=== PATIENT | female | born 1935 | race Caucasian/White ===

== ENCOUNTER 2020-08-20 17:25 | Inpatient (IN) | payer MEDICARE, BC ==
[2020-08-20] MEDS ORDERED: HYDROmorphone 0.5 MG/0.5 ML SYRINGE IVP STA (18:20)
--- NOTE | 2020-08-20 18:20 | ED ---
General Adult HPI - General Chief complaint: Fall Stated complaint: Fall Time Seen by Provider: 08/20/20 17:30 Source: patient, EMS, RN notes reviewed, old records reviewed Mode of arrival: EMS Limitations: no limitations - History of Present Illness Initial comments: This is an 85-year-old female presents emergency Department complaining of right hip pain. Patient states she tripped over the door jam trying to help bring in some groceries and she fell onto her right hip. Patient denies hitting her head patient denies neck pain patient denies headache. Patient denies numbness weakness. Patient denies any chest pain or back pain. Patient denies any other extremity pain except for right hip pain. Right leg knee and ankle are without pain. - Related Data Home Medications Medication Instructions Recorded Confirmed Aspirin 81 mg PO DAILY 04/27/15 04/27/15 Enalapril [Vasotec] 10 mg PO DAILY 04/27/15 04/27/15 metFORMIN HCL [Glucophage] 1,000 mg PO AC-SUPPER 04/27/15 04/27/15 Previous Rx's Medication Instructions Recorded HYDROcodone/APAP 7.5-325MG [[place] 1 - 2 each PO Q6HR PRN #90 tab 04/30/15 7.5-325] Warfarin [Coumadin] 2.5 mg PO DAILY #28 tab 04/30/15 glipiZIDE [Glucotrol] 10 mg PO AC-BID tab 04/30/15 Allergies Allergy/AdvReac Type Severity Reaction Status Date / Time No Known Allergies Allergy Verified 04/27/15 21:04 Review of Systems ROS Statement: Those systems with pertinent positive or pertinent negative responses have been documented in the HPI. ROS Other: All systems not noted in ROS Statement are negative. Past Medical History Past Medical History: Cancer, Diabetes Mellitus, Hypertension Additional Past Medical History / Comment(s): Colon ca 1994 History of Any Multi-Drug Resistant Organisms: None Reported Past Surgical History: Bowel Resection Past Psychological History: No Psychological Hx Reported Past Alcohol Use History: None Reported Past Drug Use History: None Reported - Past Family History Father Family Medical History: No Reported History Mother Family Medical History: Cancer Additional Family Medical History / Comment(s): patient unsure of what type of cancer General Exam - General Exam Comments Initial Comments: GENERAL: Patient is well-developed and well-nourished. Patient is nontoxic and well- hydrated and is in mild distress. ENT: Neck is soft and supple. No significant lymphadenopathy is noted. Oropharynx is clear. Moist mucous membranes. Neck has full range of motion without eliciting any pain. EYES: The sclera were anicteric and conjunctiva were pink and moist. Extraocular movements were intact and pupils were equal round and reactive to light. Eyelids were unremarkable. PULMONARY: Unlabored respirations. Good breath sounds bilaterally. No audible rales rhonchi or wheezing was noted. CARDIOVASCULAR: There is a regular rate and rhythm without any murmurs gallops or rubs. ABDOMEN: Soft and nontender with normal bowel sounds. No palpable organomegaly was noted. There is no palpable pulsatile mass. SKIN: Skin is clear with no lesions or rashes and otherwise unremarkable. NEUROLOGIC: Patient is alert and oriented x3. Cranial nerves II through XII are grossly intact. Motor and sensory are also intact. Normal speech, volume and content. Symmetrical smile. MUSCULOSKELETAL: Patient's right hip is tender to palpation and with any movement whatsoever. LYMPHATICS: No significant lymphadenopathy is noted PSYCHIATRIC: Normal psychiatric evaluation. Limitations: no limitations Course Vital Signs 08/20/20 08/20/20 17:31 18:30 Temperature 98.4 F Pulse Rate 77 99 Respiratory 16 16 Rate Blood Pressure 203/92 164/80 O2 Sat by Pulse 98 95 Oximetry Medical Decision Making - Medical Decision Making EKG shows sinus rhythm at 90 bpm [place] interval is 128 QRSs 86 QT interval 334 QTC is 408. Patient's EKG shows some ST segment depression in inferior leads II, III, and F aVF. Patient also has slight ST segment depression in precordial leads V3 through V6. X-ray of the hip shows a femoral neck fracture. I spoke with Dr. Lundberg agreed to admit the patient admitted the patient wrote admitting orders. - Lab Data Result diagrams: 08/20/20 18:20 08/20/20 18:20 Lab Results 08/20/20 08/20/20 08/20/20 Range/Units 18:20 18:20 18:20 WBC 6.7 (3.8-10.6) k/uL RBC 4.23 (3.80-5.40) m/uL Hgb 13.5 (11.4-16.0) gm/dL Hct 38.9 (34.0-46.0) % MCV 92.0 (80.0-100.0) fL MCH 31.9 (25.0-35.0) pg MCHC 34.7 (31.0-37.0) g/dL RDW 13.5 (11.5-15.5) % Plt Count 213 (150-450) k/uL MPV 6.6 Neutrophils % 83 % Lymphocytes % 9 % Monocytes % 4 % Eosinophils % 2 % Basophils % 1 % Neutrophils # 5.6 (1.3-7.7) k/uL Lymphocytes # 0.6 L (1.0-4.8) k/uL Monocytes # 0.3 (0-1.0) k/uL Eosinophils # 0.2 (0-0.7) k/uL Basophils # 0.0 (0-0.2) k/uL PT 10.3 (9.0-12.0) sec INR 1.0 (<1.2) APTT 19.3 L (22.0-30.0) sec Sodium 133 L (137-145) mmol/L Potassium 4.5 (3.5-5.1) mmol/L Chloride 99 (98-107) mmol/L Carbon Dioxide 29 (22-30) mmol/L Anion Gap 5 mmol/L BUN 22 H (7-17) mg/dL Creatinine 0.41 L (0.52-1.04) mg/dL Est GFR (CKD-EPI)AfAm >90 (>60 ml/min/1.73 sqM) Est GFR (CKD-EPI)NonAf >90 (>60 ml/min/1.73 sqM) Glucose 290 H (74-99) mg/dL Calcium 9.2 (8.4-10.2) mg/dL Total Bilirubin 0.7 (0.2-1.3) mg/dL AST 24 (14-36) U/L ALT 19 (4-34) U/L Alkaline Phosphatase 63 (38-126) U/L Total Protein 6.6 (6.3-8.2) g/dL Albumin 4.1 (3.5-5.0) g/dL Disposition Clinical Impression: Fall, Hip fracture, left Disposition: ADMITTED IP TO THIS [facility] Referrals: None,Stated [Primary Care Provider] - 1-2 days Time of Disposition: 19:59
[2020-08-20 18:40] LABS: Basophils % (A) 1 %; Eosinophils # (A) 0.2 k/uL (0-0.7); Eosinophils % (A) 2 %; HCT 38.9 % (34.0-46.0); HGB 13.5 gm/dL (11.4-16.0); Lymphocytes # (A) 0.6 k/uL (1.0-4.8); Lymphocytes % (A) 9 %; MCH 31.9 pg (25.0-35.0); MCHC 34.7 g/dL (31.0-37.0); Mean Platelet Volume 6.6; Monocytes # (A) 0.3 k/uL (0-1.0); Monocytes % (A) 4 %; Neutrophils # (A) 5.6 k/uL (1.3-7.7); Neutrophils % (A) 83 %; Platelet Count 213 k/uL (150-450); RBC 4.23 m/uL (3.80-5.40); RDW 13.5 % (11.5-15.5); WBC 6.7 k/uL (3.8-10.6)
[2020-08-20 18:50] LABS: ALT 19 U/L (4-34); AST 24 U/L (14-36); African American GFR (CKD) >90 (>60 ml/min/1.73 sqM); Albumin 4.1 g/dL (3.5-5.0); Alkaline Phosphatase 63 U/L (38-126); Anion Gap 5 mmol/L; Blood Urea Nitrogen 22 mg/dL (7-17); Calcium 9.2 mg/dL (8.4-10.2); Carbon Dioxide 29 mmol/L (22-30); Chloride 99 mmol/L (98-107); Glucose 290 mg/dL (74-99); Non-African American GFR(CKD) >90 (>60 ml/min/1.73 sqM); Potassium 4.5 mmol/L (3.5-5.1); Sodium 133 mmol/L (137-145); Total Bilirubin 0.7 mg/dL (0.2-1.3); Total Protein 6.6 g/dL (6.3-8.2)
[2020-08-20 18:51] LABS: Prothrombin Time 10.3 sec (9.0-12.0)
[2020-08-20 18:58] LABS: Partial Thromboplastin Time 19.3 sec (22.0-30.0)
--- NOTE | 2020-08-20 19:27 | XR ---
EXAMINATION TYPE: XR Hip RT and AP Pelvis DATE OF EXAM: 08/20/2020 COMPARISON: NONE HISTORY: Pain TECHNIQUE: 3 views FINDINGS: Pelvic ring is intact. There is an acute subcapital fracture right femur with impaction. Th ere is no dislocation. IMPRESSION: Acute impacted subcapital fracture right femur.
--- NOTE | 2020-08-20 19:33 | XR ---
EXAMINATION TYPE: XR chest 1V DATE OF EXAM: 08/20/2020 COMPARISON: 04/29/2015 HISTORY: Fall. Pain. TECHNIQUE: [place] view FINDINGS: There is no heart failure nor confluent pneumonic infiltrate. Costophrenic angles are clear . Bony thorax appears intact. IMPRESSION: No active cardiopulmonary disease. No change.
[2020-08-20] MEDS ORDERED: SODIUM CHLORIDE 0.9% 1,000 ML IV ONE (20:15)
[2020-08-20] MEDS ORDERED: HYDROmorphone 0.5 MG/0.5 ML SYRINGE IVP PRN (20:18)
[2020-08-20 21:24] LABS: Glucose,Whole Blood 250 mg/dL (75-99)
[2020-08-20 21:43] LABS: Appearance,Urine Turbid (Clear); Bacteria,Urine Rare /hpf; Bilirubin,Urine Negative (Negative); Blood,Urine Negative (Negative); Color,Urine Yellow; Glucose,Urine (UA) 4+ (Negative); Ketones,Urine 1+ (Negative); Leukocyte Esterase,Urine Small (Negative); Mucus,Urine Rare /hpf; Nitrite,Urine Positive (Negative); Protein,Urine 1+ (Negative); RBC,Urine 5 /hpf (0-5); Specific Gravity,Urine 1.029 (1.001-1.035); Squamous Epithelial Cell,Urine <1 /hpf (0-4); Urobilinogen,Urine <2.0 mg/dL (<2.0); WBC,Urine 18 /hpf (0-5)
[2020-08-20] MEDS: INSULIN ASPART (NovoLOG) 100 UNIT/ML VIAL SQ SCH (21:50)
[2020-08-20] MEDS: HEPARIN SODIUM,PORCINE 5,000 UNIT/ML 1 ML VIAL SQ SCH (21:51)
--- NOTE | 2020-08-21 02:15 | P.CONS ---
History of Present Illness - Reason for Consult Consult date: 08/20/20 medical clearance Requesting physician: Yann Scott - Chief Complaint fall - History of Present Illness 85 year old female with diabetes mellitus controlled with oral hypoglycemic agents, hypertension patient comes in after sustaining a fall at home, she described it as accidental trip and fall , no loss of consciousness , no open wounds or cuts, however, she could not stand up due to severe pain in her right hip. she reports similar incident 5 years ago when she tripped with a tree root resulting in fracture of the left hip requiring surgical repair that she tolerated well. she currently denies any chest pain , trouble breathing, fever, chills, URI symptoms, abd pain , or other GI symptoms. in the ED , CXR, EKG, hipo xxray , showing acute impacted subcapital fracture right femur blood work overall unremarkable EKG no acute ST changes UA was positive for WBC and nitrite suspicious for urinary tract infection like simple cystitis Review of Systems Pertinent positives as noted in HPI. All other systems were reviewed and are negative Past Medical History Past Medical History: Cancer, Diabetes Mellitus, Hypertension Additional Past Medical History / Comment(s): Colon ca 1994 History of Any Multi-Drug Resistant Organisms: None Reported Past Surgical History: Bowel Resection Past Psychological History: No Psychological Hx Reported Past Alcohol Use History: None Reported Past Drug Use History: None Reported - Past Family History Father Family Medical History: No Reported History Mother Family Medical History: Cancer Additional Family Medical History / Comment(s): patient unsure of what type of cancer Medications and Allergies Home Medications Medication Instructions Recorded Confirmed Type Enalapril [Vasotec] 10 mg PO DAILY 04/27/15 08/20/20 History Pioglitazone HCl 45 mg PO DAILY 08/20/20 08/20/20 History glipiZIDE [Glucotrol XL] 10 mg PO DAILY 08/20/20 08/20/20 History metFORMIN HCL ER [Glucophage Xr] 500 mg PO BID 08/20/20 08/20/20 History Allergies Allergy/AdvReac Type Severity Reaction Status Date / Time No Known Allergies Allergy Verified 08/20/20 20:54 Physical Exam Vitals: Vital Signs Temp Pulse Resp BP Pulse Ox 08/20/20 18:30 99 16 164/80 95 08/20/20 17:31 98.4 F 77 16 203/92 98 Intake and Output 08/20/20 08/20/20 08/20/20 06:59 14:59 22:59 Other: Weight 47.627 kg Constitutional: No acute distress, conversant, pleasant Eyes: Anicteric sclerae, moist conjunctiva, Pupils equal round reactive to light ENMT: NC/AT Oropharynx clear, no erythema, or exudates Neck: Supple, FROM, no masses, or JVD No carotid bruits No thyromegaly Lungs: Clear to auscultation Clear to percussion Normal respiratory effort, no accessory muscle use Cardiovascular: Heart regular in rate and rhythm, No murmurs, gallops, or rubs No peripheral edema Abdominal: Soft Nontender, no guarding, rebound or rigidity Abdomen moving with respiration Normoactive bowel sounds No hepatomegaly, No splenomegaly No palpable mass No abdominal wall hernia noted Skin: Normal temperature, tone, texture, turgor No induration No subcutaneous nodules No rash, lesions No ulcers Extremities: No digital cyanosis No clubbing Pedal pulses intact and symmetrical Radial pulses intact and symmetrical No calf tenderness Psychiatric: Alert and oriented to person, place Appropriate affect fair judgement Neuro Muscles Strength 4/5 in bilateral upper extremities, and left llower extremity , however, right lower extremity limited due to pain over the hip Sensation to light touch grossly present throughout Cranial nerves II-XII grossly intact No focal sensory deficits Lymphatics: no palpable cervical or supraclavicular , or inguinal lymph nodes Results CBC & Chem 7: 08/20/20 18:20 08/20/20 18:20 Labs: Abnormal Lab Results - Last 24 Hours (Table) 08/20/20 08/20/20 08/20/20 Range/Units 18:20 18:20 18:20 Lymphocytes # 0.6 L (1.0-4.8) k/uL APTT 19.3 L (22.0-30.0) sec Sodium 133 L (137-145) mmol/L BUN 22 H (7-17) mg/dL Creatinine 0.41 L (0.52-1.04) mg/dL Glucose 290 H (74-99) mg/dL Assessment and Plan Assessment: acute impacted subcapital fracture right femur pain control DVT PPX with heparin sc tid management per orthopedics NPO after midnight simple cystitis rocephine 1gm IVPB daily follow up cultures Diabetes mellitus check A1C hold oral hypoglycemic agents, resume upon discharge insulin sliding scale Hypertension , urgency , most likely secondary to pain improving with pain control resume home meds enalapril monitor vital signs PT eval post surgery follow up CBC and renal function full code patient is 85 year old Female, presetned with acute pain right hip after sustaining accidental fall . Patient denies any recent history or symptoms of congestive heart failure, mycardial infarction, syncope, arrhythmia, palpitation, or exertional dyspnea. Patient denies any past medical history of stroke, CAD, CHF, or CKD. patient does have history of DM and hypertension controlled with oral meds. Patient is functional at baseline at >4 METs she is able to climb one flight of stairs with no limitations, she is able to perform house chores and reports that she is always active and running around. Patient labs reviewed, EKG showing normal sinus rhythm , no acute ST changes. Patient is scheduled for orthopedic surgery to fix right hip fracture. This is of moderate risk, besides her advanced age and history of DM however, no modifiable risk factors at this time. Patient can proceed to surgery with moderate but acceptable perioperative cardiovascular risk factors. This has been explained to the patient and her family member at bedside , all questions answered, patient verbalized understanding and agreement. Thank you for allowing us to participate in the care of this patient. Do not hesitate to contact us with questions. Someone can be reached from the [facility] hospitalist group at all hours of the day at [phone].
[2020-08-21] MEDS: HEPARIN SODIUM,PORCINE 5,000 UNIT/ML 1 ML VIAL SQ SCH ×3 (04:39→21:20)
[2020-08-21 06:52] LABS: Glucose,Whole Blood 242 mg/dL (75-99)
[2020-08-21] MEDS: INSULIN ASPART (NovoLOG) 100 UNIT/ML VIAL SQ SCH ×4 (07:42→21:20)
[2020-08-21] MEDS: lisinopriL 10 MG TAB PO SCH (07:55)
--- NOTE | 2020-08-21 08:08 | P.HPOR ---
History of Present Illness H&P Date: 08/21/20 Chief Complaint: Right hip pain This is an 85-year-old female admitted through the emergency department last evening after sustaining injury to her right hip from a ground level fall. She was found to have a femoral neck fracture of the right hip and admitted to our service for surgical intervention. The patient has history of hypertension and diabetes. Past Medical History Past Medical History: Cancer, Diabetes Mellitus, Hypertension Additional Past Medical History / Comment(s): Colon ca 1993 History of Any Multi-Drug Resistant Organisms: None Reported Past Surgical History: Bowel Resection Past Anesthesia/Blood Transfusion Reactions: No Reported Reaction Past Psychological History: No Psychological Hx Reported Past Alcohol Use History: None Reported Past Drug Use History: None Reported - Past Family History Father Family Medical History: No Reported History Mother Family Medical History: Cancer Additional Family Medical History / Comment(s): patient unsure of what type of cancer Medications and Allergies Home Medications Medication Instructions Recorded Confirmed Type Enalapril [Vasotec] 10 mg PO DAILY 04/27/15 08/20/20 History Pioglitazone HCl 45 mg PO DAILY 08/20/20 08/20/20 History glipiZIDE [Glucotrol XL] 10 mg PO DAILY 08/20/20 08/20/20 History metFORMIN HCL ER [Glucophage Xr] 500 mg PO BID 08/20/20 08/20/20 History Allergies Allergy/AdvReac Type Severity Reaction Status Date / Time No Known Allergies Allergy Verified 08/20/20 20:54 Physical Examination This is a pleasant 85-year-old female in no acute distress. She is alert with slight confusion this morning. She is having difficulty recalling the details of her fall. Exam of the head neck reveal no obvious deformity. She has full cervical spine motion without difficulty or pain. Exam of the upper extremities is unremarkable. She has full shoulder, elbow, wrist and finger motion bilaterally. Neurovascular status to the upper ex tremities is intact. Exam of the lower extremities reveals shortening and external rotation to the r ight leg. She is able lift the left leg off the bed independently. She is unable to move the right leg. There is some discoloration to bilateral feet with the right being more severe. Capillary refill is sluggish at about 5 seconds bilaterally. Slightly dulled sensation to bilateral feet. Results X-rays of the pelvis and right hip reveal a displaced femoral neck fracture of the right hip. There are hemiarthroplasty components in place on the left hip. - Labs Labs: Abnormal Lab Results - Last 24 Hours (Table) 08/20/20 08/20/20 08/20/20 Range/Units 18:20 18:20 18:20 Lymphocytes # 0.6 L (1.0-4.8) k/uL APTT 19.3 L (22.0-30.0) sec Sodium 133 L (137-145) mmol/L BUN 22 H (7-17) mg/dL Creatinine 0.41 L (0.52-1.04) mg/dL Glucose 290 H (74-99) mg/dL POC Glucose (mg/dL) (75-99) mg/dL Urine Appearance (Clear) Urine Protein (Negative) Urine Glucose (UA) (Negative) Urine Ketones (Negative) Urine Nitrite (Negative) Ur Leukocyte Esterase (Negative) Urine WBC (0-5) /hpf Urine Bacteria (None) /hpf Urine Mucus (None) /hpf 08/20/20 08/20/20 08/21/20 Range/Units 21: 21:38 06:47 Lymphocytes # (1.0-4.8) k/uL APTT (22.0-30.0) sec Sodium (137-145) mmol/L BUN (7-17) mg/dL Creatinine (0.52-1.04) mg/dL Glucose (74-99) mg/dL POC Glucose (mg/dL) 250 H 242 H (75-99) mg/dL Urine Appearance Turbid H (Clear) Urine Protein 1+ H (Negative) Urine Glucose (UA) 4+ H (Negative) Urine Ketones 1+ H (Negative) Urine Nitrite Positive H (Negative) Ur Leukocyte Esterase Small H (Negative) Urine WBC 18 H (0-5) /hpf Urine Bacteria Rare H (None) /hpf Urine Mucus Rare H (None) /hpf H & H 08/20/20 Range/Units 18:20 Hgb 13.5 (11.4-16.0) gm/dL Hct 38.9 (34.0-46.0) % Coagulation 08/20/20 Range/Units 18:20 INR 1.0 (<1.2) Result Diagrams: 08/20/20 18:20 08/20/20 18:20 Assessment and Plan (1) Fracture of femoral neck, right Current Visit: Yes Status: Acute Code(s): S72.001A - FRACTURE OF UNSP PART OF NECK OF RIGHT FEMUR, INIT SNOMED Code(s): 8143471 (2) Fall Current Visit: Yes Status: Acute Code(s): W19.XXXA - UNSPECIFIED FALL, INITIAL ENCOUNTER SNOMED Code(s): 4844032 (3) Diabetes Current Visit: No Status: Acute Code(s): E11.9 - TYPE 2 DIABETES MELLITUS WITHOUT COMPLICATIONS SNOMED Code(s): 40005989 Plan: The clinical and neck she findings are discussed with the patient and nursing staff. It is recommended she undergo hemiarthroplasty of the right hip today. The patient is cleared medically with moderate cardiovascular risk.
[2020-08-21] MEDS ORDERED: ACETAMINOPHEN TAB 325 MG TAB PO PRN (08:15)
--- NOTE | 2020-08-21 10:02 | P.PN ---
Subjective Progress Note Date: 08/21/20 Patient feels okay no chest pain no shortness of breath Constitutional: No acute distress, conversant, pleasant Eyes: Anicteric sclerae, moist conjunctiva, no lid-lag PERRLA ENMT: NC/AT Oropharynx clear, no erythema, exudates Neck: Supple, FROM, no masses, or JVD No carotid bruits No thyromegaly Lungs: Clear to auscultation Clear to percussion Normal respiratory effort, no accessory muscle use Cardiovascular: Heart regular in rate and rhythm, No murmurs, gallops, or rubs No peripheral edema Abdominal: Soft Nontender, no guarding, rebound or rigidity Abdomen moving with respiration Normoactive bowel sounds No hepatomegaly, No splenomegaly No palpable mass No abdominal wall hernia noted Skin: Normal temperature, tone, texture, turgor No induration No subcutaneous nodules No rash, lesions No ulcers Extremities: Cyanosis in the right foot Psychiatric:Alert and oriented to person, place and time Appropriate affect Intact judgement Discoloration of the right foot with cyanosis no evidence of acute ischemia may need vascular consult acute impacted subcapital fracture right femur pain control DVT PPX with heparin sc tid management per orthopedics NPO after midnight simple cystitis rocephine 1gm IVPB daily follow up cultures Diabetes mellitus check A1C hold oral hypoglycemic agents, resume upon discharge insulin sliding scale Hypertension , urgency , most likely secondary to pain improving with pain control resume home meds enalapril monitor vital signs PT eval post surgery follow up CBC and renal function full code Objective - Vital Signs Vital signs: Vital Signs Temp 100.2 F H 08/21/20 07:06 Pulse 81 08/21/20 07:06 Resp 18 08/21/20 07:06 BP 158/75 08/21/20 07:06 Pulse Ox 96 08/21/20 07:06 Intake & Output 08/20/20 08/21/20 08/21/20 18:59 06:59 18:59 Weight 47.627 kg 47.627 kg Other: Voiding Method Bedpan Diaper # Voids 3 - Labs CBC & Chem 7: 08/20/20 18:20 08/20/20 18:20 Labs: Abnormal Lab Results - Last 24 Hours (Table) 08/20/20 08/20/20 08/20/20 Range/Units 18:20 18:20 18:20 Lymphocytes # 0.6 L (1.0-4.8) k/uL APTT 19.3 L (22.0-30.0) sec Sodium 133 L (137-145) mmol/L BUN 22 H (7-17) mg/dL Creatinine 0.41 L (0.52-1.04) mg/dL Glucose 290 H (74-99) mg/dL POC Glucose (mg/dL) (75-99) mg/dL Urine Appearance (Clear) Urine Protein (Negative) Urine Glucose (UA) (Negative) Urine Ketones (Negative) Urine Nitrite (Negative) Ur Leukocyte Esterase (Negative) Urine WBC (0-5) /hpf Urine Bacteria (None) /hpf Urine Mucus (None) /hpf 08/20/20 08/20/20 08/21/20 Range/Units 21:22 21:38 06:47 Lymphocytes # (1.0-4.8) k/uL APTT (22.0-30.0) sec Sodium (137-145) mmol/L BUN (7-17) mg/dL Creatinine (0.52-1.04) mg/dL Glucose (74-99) mg/dL POC Glucose (mg/dL) 250 H 242 H (75-99) mg/dL Urine Appearance Turbid H (Clear) Urine Protein 1+ H (Negative) Urine Glucose (UA) 4+ H (Negative) Urine Ketones 1+ H (Negative) Urine Nitrite Positive H (Negative) Ur Leukocyte Esterase Small H (Negative) Urine WBC 18 H (0-5) /hpf Urine Bacteria Rare H (None) /hpf Urine Mucus Rare H (None) /hpf
[2020-08-21 10:36] LABS: African American GFR (CKD) 95.7 (60.0-200.0); Anion Gap 14.1 mmol/L (4.00-12.00); Calcium 8.8 mg/dL (8.7-10.3); Carbon Dioxide 24.9 mmol/L (21.6-31.8); Non-African American GFR(CKD) 82.5 (60.0-200.0); Potassium 4.4 mmol/L (3.5-5.5)
[2020-08-21 12:06] LABS: Glucose,Whole Blood 194 mg/dL (75-99)
[2020-08-21] MEDS ORDERED: IV FLUID CONTINUATION 1,000 ML IV ONE (14:25)
[2020-08-21] MEDS ORDERED: ONDANSETRON 4 MG/2 ML VIAL ONE (14:35)
[2020-08-21] MEDS ORDERED: PHENYLEPHRINE 10 MG/ML VIAL ONE (14:35)
[2020-08-21] MEDS ORDERED: ePHEDrine SULFATE/0.9% NACL/PF 50 MG/5 ML SYRINGE IV ONE (14:35)
[2020-08-21] MEDS ORDERED: KETAMINE 10 MG/ML 20 ML VIAL ONE (14:35)
[2020-08-21] MEDS ORDERED: fentaNYL (PF) 50 MCG/ML 2 ML AMP ONE (14:35)
[2020-08-21] MEDS ORDERED: WATER FOR INJECTION, STERILE 10 ML VIAL IV ONE (14:35)
[2020-08-21 14:48] VITALS: BMI 17.4
[2020-08-21] MEDS ORDERED: ceFAZolin 1,000 MG VIAL IVPB ONE (15:00)
[2020-08-21] MEDS ORDERED: LACTATED RINGERS 1,000 ML IV ONE (15:44)
--- NOTE | 2020-08-21 15:47 | P.OP ---
Date of Procedure: 08/21/20 Procedure(s) Performed: PREOPERATIVE DIAGNOSIS: Right hip femoral neck fracture POSTOPERATIVE DIAGNOSIS: Right hip femoral neck fracture OPERATION: Right hip cemented unipolar hemiarthroplasty. ANESTHESIA: Spinal ESTIMATED BLOOD LOSS: 75 ml. MORTICIAN HELPER: Clemencia Balbuena PA-C (assistance with: patient positioning, retraction, exposure, hemostasis, leg positioning, implantation, irrigation, closure, dressing) COMPLICATIONS: None apparent. COMPONENTS IMPLANTED: Marycarmen LDFx cemented femoral stem; unipolar femoral head; neck extension augments as needed (+10.5 mm). INDICATIONS: Mrs. Rose is an 85-year-old female with a history of falling and sustaining a displaced femoral neck fracture. I have recommended surgical treatment with a cemented unipolar hemiarthroplasty. I have discussed this procedure in detail and explained the potential risks and complications as being inclusive of, but not limited to: Bleeding, infection, scarring, discomfort, blood vessel and/or nerve damage, limb length inequality, gait disturbance, blood clot, pulmonary embolism, , and other risks. The consent form has been signed. PROCEDURE: After appropriate consent was obtained, the patient was taken to the operating room and placed in supine position. Spinal anesthetic was administered and after confirmation of adequate anesthesia, the patient was placed into the lateral decubitus position with the affected side up. Care was taken to make sure that all pressure points were adequately padded and a Mg hip positioner was utilized for positioning. The hip was prepped and draped in the usual aseptic fashion using a combination of Chloraprep and alcohol. [place] drape was used for the case and the patient received intravenous antibiotics prior to the incision. The incision was created directly over the greater trochanter and carried slightly posteriorly for a posterior approach to the hip. The incision was then deepened down to subcutaneous tissue and fascia nereyda. Fascia nereyda was split in line with the incision and split proximally along the fibers of the gluteus lluvia. The underlying fibers of the muscle were teased apart using finger dissection and bleeding vessels were picked up and coagulated. Retractor was then placed posteriorly consisting of a blunt [place]. The short external rotators and capsule were exposed and good visualization of the attachment of the external rotators to the femur was established. The short external rotators and capsule were released using electrocautery from their femoral attachments. A hockey stick shaped incision was created in the capsule. Joint fluid and hemarthrosis was evacuated and the patient's hip was internally rotated to expose the fracture site. The femoral neck cut was created approximately 1 cm superior to the lesser trochanter using a reciprocating saw. The femoral head and neck fragment was removed and visualization and palpation of the acetabular vault showed intact hyaline cartilage with no bone exposure or significant degeneration. Attention was then directed back to the proximal femur. Retractors were placed around the proximal femur and box osteotome was used followed by canal finder and trochanteric reamer. Cylindrical reaming was performed. Progressive broaching was then performed starting with a #10 broach and progressing final size, in a position of 10-15 degrees anteversion. [place] anteversion was within 5 degrees of stem position. The final size broach had excellent fit and fill of the patient's metaphysis and diaphysis. Calcar planing was performed. Trial reduction was then performed starting with appropriately sized femoral head and various neck extensions to evaluate stability, limb length equality, and soft tissue tension. Once these parameters were satisfactory, the corresponding final components were then called for. Trial components were removed. The femoral canal was sized for the centralizer and cement plug. Once the cement plug had been inserted distal to the planned length of the femoral component, the canal was pulse lavaged and brushed to remove any unstable bone. It was then dried with a lap sponge. Cement was mixed under vacuum conditions to decrease porosity and inserted into a cement gun. Distal centralizer was placed onto the femoral component with a bit of cement. The cement was allowed to reach a slightly doughy consistency and then the canal was filled retrograde with the cement gun. Thumb pressurization was performed three times. The femoral component was then inserted with the previously determined degree of anteversion. Excess cement was removed before it hardened completely. The femoral head was then impacted onto the Lau taper. Blood and debris were removed from the acetabular socket and the hip was then reduced and checked for stability, limb length and soft tissue tension. These parameters were found to be satisfactory; the wound was then thoroughly irrigated with normal saline. Final hemostasis was obtained using electrocautery. Closure of the capsule was performed meticulously using #3 Vicryl suture. Four [id number] sutures were placed in the posterior capsule along with repair of the external rotators. The fascia nereyda was then repaired using combination of #3 Vicryl suture in interrupted fashion and Quill in running fashion. 2-0 Vicryl suture was used for the subcutaneous tissues and 3-0 Quill for the skin. Dermabond tape was then applied. The patient tolerated the procedure well. There were no complications and the wound bed was dry and there was no need for drain placement. Sterile dressing was then applied and the patient was carefully removed from the operating room table, placed on the stretcher and was taken to the recovery room in stable condition. Sponge and needle counts were correct.
[2020-08-21 15:58] LABS: Hemoglobin A1C 9.9 % (4.0-6.0)
[2020-08-21] MEDS ORDERED: NALOXONE 0.4 MG/ML 1 ML VIAL IV PRN (16:09)
[2020-08-21] MEDS ORDERED: HYDROmorphone 0.2 MG/1 ML SYRINGE IVP PRN (16:09)
[2020-08-21] MEDS ORDERED: HYDROmorphone 0.5 MG/0.5 ML SYRINGE IVP PRN (16:09)
[2020-08-21] MEDS ORDERED: TEMAZEPAM 15 MG CAP PO PRN (16:09)
--- NOTE | 2020-08-21 16:23 | XR ---
EXAMINATION TYPE: XR Hip Limited RT DATE OF EXAM: 08/21/2020 CLINICAL HISTORY: Right hip fracture. TECHNIQUE: Single AP portable view of right hip is obtained immediately postoperatively. COMPARISON: Pelvic and right hip x-ray from yesterday. FINDINGS: Metallic hardware from total right hip arthroplasty is seen and appears satisfactory in ali gnment and position. There is evidence of recent surgery with subcutaneous gas noted laterally. IMPRESSION: Metallic hardware from right hip arthroplasty is satisfactory in position.
--- NOTE | 2020-08-21 16:53 | P.GSCN ---
History of Present Illness Consult date: 08/21/20 History of present illness: Mrs. Rose is an 85-year-old female who fell. She was uncertain of how she fell but did sustain a displaced femoral neck fracture of her right lower extremity. The plan was to undergo surgical repair but upon evaluation this morning, there was concern of some delayed capillary refill of her right lower extremity therefore vascular surgery was consulted. At the time of the phone to consult, a stat arterial Doppler with ABIs was obtai anibal revealing multiphasic flow on the left with an FEMI of 1.5, and multiphasic flow through the PT with more monophasic flow through the dorsalis pedis on the right with an FEMI of 1.21 given these findings I do not believe there is any significant arterial occlusion acutely and orthopedics proceed with surgical intervention. My consultation and physical exam was performed after surgery in the postanesthesia care unit Past Medical History Past Medical History: Cancer, Diabetes Mellitus, Hypertension Additional Past Medical History / Comment(s): Colon ca 1993 History of Any Multi-Drug Resistant Organisms: None Reported Past Surgical History: Bowel Resection Past Anesthesia/Blood Transfusion Reactions: No Reported Reaction Past Psychological History: No Psychological Hx Reported Past Alcohol Use History: None Reported Past Drug Use History: None Reported - Past Family History Father Family Medical History: No Reported History Mother Family Medical History: Cancer Additional Family Medical History / Comment(s): patient unsure of what type of cancer Medications and Allergies Home Medications Medication Instructions Recorded Confirmed Type Enalapril [Vasotec] 10 mg PO DAILY 04/27/15 08/20/20 History Pioglitazone HCl 45 mg PO DAILY 08/20/20 08/20/20 History glipiZIDE [Glucotrol XL] 10 mg PO DAILY 08/20/20 08/20/20 History metFORMIN HCL ER [Glucophage Xr] 500 mg PO BID 08/20/20 08/20/20 History Allergies Allergy/AdvReac Type Severity Reaction Status Date / Time No Known Allergies Allergy Verified 08/20/20 20:54 Surgical - Exam Vital Signs Temp Pulse Resp BP Pulse Ox 98.4 F 77 16 203/92 98 08/20/20 17:31 08/20/20 17:31 08/20/20 17:31 08/20/20 17:31 08/20/20 17:31 Gen. is a pleasant and cooperative elderly female in no acute distress. HEENT is normocephalic atraumatic. Extraocular motion intact. Heart is irregular, appears to be multiple PACs. Lungs are clear although decreased breath sounds. Abdomen is soft, nontender nondistended. Extremity show no clubbing or edema. There is some purplish hue to the right lower extremity although there appears to be adequate capillary refill through this. She has a palpable DP and PT on the left. She has a palpable PT on the right. She has multiphasic signal through the DP which is much lateral, it diminishes at the midfoot. Patient remains motor sensory intact but difficult to fully examine due to previously placed spinal. She is able to move her feet and wiggle her toes. Normal mood and affect. Cranial nerves II through XII grossly intact Results Arterial Dopplers reviewed and per the HPI - Labs 08/20/20 18:20 08/21/20 06:32 Abnormal Lab Results - Last 24 Hours (Table) 08/20/20 08/20/20 08/20/20 Range/Units 18:20 18:20 18:20 Lymphocytes # 0.6 L (1.0-4.8) k/uL APTT 19.3 L (22.0-30.0) sec Sodium 133 L (137-145) mmol/L Anion Gap (4.00-12.00) mmol/L BUN 22 H (7-17) mg/dL Creatinine 0.41 L (0.52-1.04) mg/dL BUN/Creatinine Ratio (12.00-20.00) Ratio Glucose 290 H (74-99) mg/dL POC Glucose (mg/dL) (75-99) mg/dL Hemoglobin A1c (4.0-6.0) % Urine Appearance (Clear) Urine Protein (Negative) Urine Glucose (UA) (Negative) Urine Ketones (Negative) Urine Nitrite (Negative) Ur Leukocyte Esterase (Negative) Urine WBC (0-5) /hpf Urine Bacteria (None) /hpf Urine Mucus (None) /hpf 08/20/20 08/20/20 08/21/20 Range/Units 21:22 21:38 06:32 Lymphocytes # (1.0-4.8) k/uL APTT (22.0-30.0) sec Sodium (137-145) mmol/L Anion Gap (4.00-12.00) mmol/L BUN (7-17) mg/dL Creatinine (0.52-1.04) mg/dL BUN/Creatinine Ratio (12.00-20.00) Ratio Glucose (74-99) mg/dL POC Glucose (mg/dL) 250 H (75-99) mg/dL Hemoglobin A1c 9.9 H (4.0-6.0) % Urine Appearance Turbid H (Clear) Urine Protein 1+ H (Negative) Urine Glucose (UA) 4+ H (Negative) Urine Ketones 1+ H (Negative) Urine Nitrite Positive H (Negative) Ur Leukocyte Esterase Small H (Negative) Urine WBC 18 H (0-5) /hpf Urine Bacteria Rare H (None) /hpf Urine Mucus Rare H (None) /hpf 08/21/20 08/21/20 08/21/20 Range/Units 06:32 06:47 12:04 Lymphocytes # (1.0-4.8) k/uL APTT (22.0-30.0) sec Sodium (137-145) mmol/L Anion Gap 14.10 H (4.00-12.00) mmol/L BUN (7-17) mg/dL Creatinine (0.52-1.04) mg/dL BUN/Creatinine Ratio 30.00 H (12.00-20.00) Ratio Glucose 262 H (74-99) mg/dL POC Glucose (mg/dL) 242 H 194 H (75-99) mg/dL Hemoglobin A1c (4.0-6.0) % Urine Appearance (Clear) Urine Protein (Negative) Urine Glucose (UA) (Negative) Urine Ketones (Negative) Urine Nitrite (Negative) Ur Leukocyte Esterase (Negative) Urine WBC (0-5) /hpf Urine Bacteria (None) /hpf Urine Mucus (None) /hpf Diabetes panel 08/20/20 08/21/20 08/21/20 Range/Units 18:20 06:32 06:32 Sodium 133 L 138 (137-145) mmol/L Potassium 4.5 4.4 (3.5-5.1) mmol/L Chloride 99 99 (98-107) mmol/L Carbon Dioxide 29 24.9 (22-30) mmol/L BUN 22 H 18.0 (7-17) mg/dL Creatinine 0.41 L 0.6 (0.52-1.04) mg/dL Glucose 290 H 262 H (74-99) mg/dL Hemoglobin A1c 9.9 H (4.0-6.0) % Calcium 9.2 8.8 (8.4-10.2) mg/dL AST 24 (14-36) U/L ALT 19 (4-34) U/L Alkaline Phosphatase 63 (38-126) U/L Total Protein 6.6 (6.3-8.2) g/dL Albumin 4.1 (3.5-5.0) g/dL Calcium panel 08/20/20 08/21/20 Range/Units 18:20 06:32 Calcium 9.2 8.8 (8.4-10.2) mg/dL Albumin 4.1 (3.5-5.0) g/dL Pituitary panel 08/20/20 08/21/20 Range/Units 18:20 06:32 Sodium 133 L 138 (137-145) mmol/L Potassium 4.5 4.4 (3.5-5.1) mmol/L Chloride 99 99 (98-107) mmol/L Carbon Dioxide 29 24.9 (22-30) mmol/L BUN 22 H 18.0 (7-17) mg/dL Creatinine 0.41 L 0.6 (0.52-1.04) mg/dL Glucose 290 H 262 H (74-99) mg/dL Calcium 9.2 8.8 (8.4-10.2) mg/dL Adrenal panel 08/20/20 08/21/20 Range/Units 18:20 06:32 Sodium 133 L 138 (137-145) mmol/L Potassium 4.5 4.4 (3.5-5.1) mmol/L Chloride 99 99 (98-107) mmol/L Carbon Dioxide 29 24.9 (22-30) mmol/L BUN 22 H 18.0 (7-17) mg/dL Creatinine 0.41 L 0.6 (0.52-1.04) mg/dL Glucose 290 H 262 H (74-99) mg/dL Calcium 9.2 8.8 (8.4-10.2) mg/dL Total Bilirubin 0.7 (0.2-1.3) mg/dL AST 24 (14-36) U/L ALT 19 (4-34) U/L Alkaline Phosphatase 63 (38-126) U/L Total Protein 6.6 (6.3-8.2) g/dL Albumin 4.1 (3.5-5.0) g/dL Assessment and Plan Assessment: Color changes right lower extremity Femoral neck fracture right femur Irregular heartbeat, question PACs Plan: Overall do not believe the patient has any significant arterial injury or insufficiency at this time given the review of her waveforms and clinical findings. We'll continue to monitor. Keep right lower extremity warm. Repeat EKG
[2020-08-21] MEDS: LACTATED RINGERS 1,000 ML IV SCH (17:32)
[2020-08-21] MEDS: HYDROmorphone 0.5 MG/0.5 ML SYRINGE IVP PRN (19:46)
[2020-08-21] MEDS: SENNOSIDES-DOCUSATE SODIUM 1 EACH TAB PO SCH (21:20)
[2020-08-21] MEDS: ASPIRIN 81 MG PO SCH (21:20)
[2020-08-21 21:31] LABS: Glucose,Whole Blood 309 mg/dL (75-99)
[2020-08-22] MEDS: LACTATED RINGERS 1,000 ML IV SCH ×3 (02:03→22:41)
[2020-08-22] MEDS: HYDROmorphone 0.5 MG/0.5 ML SYRINGE IVP PRN ×2 (03:21→06:07)
[2020-08-22] MEDS: HEPARIN SODIUM,PORCINE 5,000 UNIT/ML 1 ML VIAL SQ SCH ×3 (06:07→19:41)
[2020-08-22 06:44] LABS: Glucose,Whole Blood 302 mg/dL (75-99)
[2020-08-22 07:56] LABS: Basophils % (A) 0 %; Eosinophils % (A) 0 %; HCT 37.9 % (34.0-46.0); HGB 12.2 gm/dL (11.4-16.0); Hypochromasia Moderate; Lymphocytes # (A) 0.6 k/uL (1.0-4.8); Lymphocytes % (A) 5 %; MCH 31.7 pg (25.0-35.0); MCHC 32.2 g/dL (31.0-37.0); Monocytes # (A) 0.6 k/uL (0-1.0); Monocytes % (A) 5 %; Neutrophils # (A) 10.5 k/uL (1.3-7.7); Neutrophils % (A) 89 %; Platelet Count 234 k/uL (150-450); RBC 3.85 m/uL (3.80-5.40); RDW 13.8 % (11.5-15.5); WBC 11.8 k/uL (3.8-10.6)
[2020-08-22 08:09] LABS: MCV 98.6 fL (80.0-100.0)
[2020-08-22] MEDS: INSULIN ASPART (NovoLOG) 100 UNIT/ML VIAL SQ SCH ×4 (08:10→21:41)
[2020-08-22] MEDS: lisinopriL 10 MG TAB PO SCH (08:11)
[2020-08-22] MEDS: ASPIRIN 81 MG PO SCH ×2 (08:11→19:40)
--- NOTE | 2020-08-22 08:52 | P.PN ---
Subjective Progress Note Date: 08/22/20 Patient seen and examined. No issues overnight. Patient is up to the bathroom without difficulty. Objective - Vital Signs Vital signs: Vital Signs Temp 99.1 F 08/22/20 06:54 Pulse 91 08/22/20 06:54 Resp 17 08/22/20 06:54 BP 132/54 08/22/20 06:54 Pulse Ox 93 L 08/22/20 06:54 Intake & Output 08/21/20 08/22/20 08/22/20 18:59 06:59 18:59 Intake Total 1200 Output Total 975 450 Balance 225 -450 Weight 47.627 kg Intake: IV 1100 Intake, IV Titration 100 Amount Lactated Ringers 1,000 ml 100 @ 100 mls/hr IV .Q10H RADHA Rx#:[id number] Output: Urine 900 450 Estimated Blood Loss 75 Other: Voiding Method Indwelling Catheter Toilet - Exam No acute distress. Heart is regular although multiple PACs. Lungs are clear although diminished. Abdomen is soft. Extremity show no clubbing, cyanosis or edema. Bilateral feet are warm. - Labs CBC & Chem 7: 08/22/20 06:13 08/21/20 06:32 Labs: Abnormal Lab Results - Last 24 Hours (Table) 08/21/20 08/21/20 08/21/20 Range/Units 06:32 06:32 12:04 WBC (3.8-10.6) k/uL Neutrophils # (1.3-7.7) k/uL Lymphocytes # (1.0-4.8) k/uL Anion Gap 14.10 H (4.00-12.00) mmol/L BUN/Creatinine Ratio 30.00 H (12.00-20.00) Ratio Glucose 262 H (70-110) mg/dL POC Glucose (mg/dL) 194 H (75-99) mg/dL Hemoglobin A1c 9.9 H (4.0-6.0) % 08/21/20 08/22/20 08/22/20 Range/Units 21:17 06:13 06:42 WBC 11.8 H (3.8-10.6) k/uL Neutrophils # 10.5 H (1.3-7.7) k/uL Lymphocytes # 0.6 L (1.0-4.8) k/uL Anion Gap (4.00-12.00) mmol/L BUN/Creatinine Ratio (12.00-20.00) Ratio Glucose (70-110) mg/dL POC Glucose (mg/dL) 309 H 302 H (75-99) mg/dL Hemoglobin A1c (4.0-6.0) % Assessment and Plan Assessment: Color changes right lower extremity Femoral neck fracture right Plan: At this time no further vascular intervention or testing required. Overall appears normal, would question possible changes attributed to edema down into the foot. Continue postoperative care as ordered
--- NOTE | 2020-08-22 10:29 | P.PN ---
Subjective Progress Note Date: 08/22/20 Patient feels okay today no chest pain no shortness of breath Constitutional: No acute distress, conversant, pleasant Eyes: Anicteric sclerae, moist conjunctiva, no lid-lag PERRLA ENMT: NC/AT Oropharynx clear, no erythema, exudates Neck: Supple, FROM, no masses, or JVD No carotid bruits No thyromegaly Lungs: Clear to auscultation Clear to percussion Normal respiratory effort, no accessory muscle use Cardiovascular: Heart regular in rate and rhythm, No murmurs, gallops, or rubs No peripheral edema Abdominal: Soft Nontender, no guarding, rebound or rigidity Abdomen moving with respiration Normoactive bowel sounds No hepatomegaly, No splenomegaly No palpable mass No abdominal wall hernia noted Skin: Normal temperature, tone, texture, turgor No induration No subcutaneous nodules No rash, lesions No ulcers Extremities: No digital cyanosis No clubbing Pedal pulses intact and symmetrical Radial pulses intact and symmetrical Normal gait and station No calf tenderness Psychiatric:Alert and oriented to person, place and time Appropriate affect Intact judgement Neuro: acute impacted subcapital fracture right femur pain control DVT PPX with heparin sc tid Status post surgical correction overall stable simple cystitis rocephine 1gm IVPB daily follow up cultures Diabetes mellitus check A1C hold oral hypoglycemic agents, resume upon discharge insulin sliding scale Hypertension , urgency , most likely secondary to pain improving with pain control resume home meds enalapril monitor vital signs PT eval post surgery follow up CBC and renal function full code Objective - Vital Signs Vital signs: Vital Signs Temp 99.1 F 08/22/20 06:54 Pulse 91 08/22/20 06:54 Resp 17 08/22/20 06:54 BP 132/54 08/22/20 06:54 Pulse Ox 93 L 08/22/20 06:54 Intake & Output 08/21/20 08/22/20 08/22/20 18:59 06:59 18:59 Intake Total 1200 Output Total 975 450 Balance 225 -450 Weight 47.627 kg Intake: IV 1100 Intake, IV Titration 100 Amount Lactated Ringers 1,000 ml 100 @ 100 mls/hr IV .Q10H RADHA Rx#:[id number] Output: Urine 900 450 Estimated Blood Loss 75 Other: Voiding Method Indwelling Catheter Toilet - Labs CBC & Chem 7: 08/22/20 06:13 08/21/20 06:32 Labs: Abnormal Lab Results - Last 24 Hours (Table) 08/21/20 08/21/20 08/21/20 Range/Units 06:32 06:32 12:04 WBC (3.8-10.6) k/uL Neutrophils # (1.3-7.7) k/uL Lymphocytes # (1.0-4.8) k/uL Anion Gap 14.10 H (4.00-12.00) mmol/L BUN/Creatinine Ratio 30.00 H (12.00-20.00) Ratio Glucose 262 H (70-110) mg/dL POC Glucose (mg/dL) 194 H (75-99) mg/dL Hemoglobin A1c 9.9 H (4.0-6.0) % 08/21/20 08/22/20 08/22/20 Range/Units 21:17 06:13 06:42 WBC 11.8 H (3.8-10.6) k/uL Neutrophils # 10.5 H (1.3-7.7) k/uL Lymphocytes # 0.6 L (1.0-4.8) k/uL Anion Gap (4.00-12.00) mmol/L BUN/Creatinine Ratio (12.00-20.00) Ratio Glucose (70-110) mg/dL POC Glucose (mg/dL) 309 H 302 H (75-99) mg/dL Hemoglobin A1c (4.0-6.0) %
--- NOTE | 2020-08-22 10:29 | P.PN ---
Subjective Progress Note Date: 08/22/20 Principal diagnosis: Right hip fracture. Status post hemiarthroplasty right hip. History of hemiarthroplasty left hip. Mrs. Rose is an 85-year-old female with a history of falling and sustaining a displaced femoral neck fracture. She is postop day #1 status post hemiarthroplasty of the right hip. She is doing well from orthopedic standpoint. She has no new complaints or concerns today. Vital signs and labs are stable. The patient was evaluated yesterday by vascular surgery preoperatively and postoperatively secondary to her poor circulation to the right lower extremity. Objective - Vital Signs Vital signs: Vital Signs Temp 99.1 F 08/22/20 06:54 Pulse 91 08/22/20 06:54 Resp 17 08/22/20 06:54 BP 132/54 08/22/20 06:54 Pulse Ox 93 L 08/22/20 06:54 Intake & Output 08/21/20 08/22/20 08/22/20 18:59 06:59 18:59 Intake Total 1200 Output Total 975 450 Balance 225 -450 Weight 47.627 kg Intake: IV 1100 Intake, IV Titration 100 Amount Lactated Ringers 1,000 ml 100 @ 100 mls/hr IV .Q10H RADHA Rx#:[id number] Output: Urine 900 450 Estimated Blood Loss 75 Other: Voiding Method Indwelling Catheter Toilet - Exam This is a pleasant 85-year-old female in no acute distress. She is alert and oriented at this time. She is sitting up in a chair at the bedside. Exam of the right hip reveals that her dressing is clean, dry and intact. She has full foot and ankle motion without difficulty or pain. Pedal pulse is nonpalpable. They have detected pulse on Doppler. Capillary refill remains sluggish. She has normal sensation to the toes. - Labs CBC & Chem 7: 08/22/20 06:13 08/21/20 06:32 Labs: Abnormal Lab Results - Last 24 Hours (Table) 08/21/20 08/21/20 08/21/20 Range/Units 06:32 06:32 12:04 WBC (3.8-10.6) k/uL Neutrophils # (1.3-7.7) k/uL Lymphocytes # (1.0-4.8) k/uL Anion Gap 14.10 H (4.00-12.00) mmol/L BUN/Creatinine Ratio 30.00 H (12.00-20.00) Ratio Glucose 262 H (70-110) mg/dL POC Glucose (mg/dL) 194 H (75-99) mg/dL Hemoglobin A1c 9.9 H (4.0-6.0) % 08/21/20 08/22/20 08/22/20 Range/Units 21:17 06:13 06:42 WBC 11.8 H (3.8-10.6) k/uL Neutrophils # 10.5 H (1.3-7.7) k/uL Lymphocytes # 0.6 L (1.0-4.8) k/uL Anion Gap (4.00-12.00) mmol/L BUN/Creatinine Ratio (12.00-20.00) Ratio Glucose (70-110) mg/dL POC Glucose (mg/dL) 309 H 302 H (75-99) mg/dL Hemoglobin A1c (4.0-6.0) % Assessment and Plan (1) Fracture of femoral neck, right Current Visit: Yes Status: Acute Code(s): S72.001A - FRACTURE OF UNSP PART OF NECK OF RIGHT FEMUR, INIT SNOMED Code(s): 3607178 (2) Fall Current Visit: Yes Status: Acute Code(s): W19.XXXA - UNSPECIFIED FALL, INITIAL ENCOUNTER SNOMED Code(s): 0327306 (3) Diabetes Current Visit: No Status: Acute Code(s): E11.9 - TYPE 2 DIABETES MELLITUS WITHOUT COMPLICATIONS SNOMED Code(s): 66815715 Plan: The clinical and neck she findings are discussed with the patient. She will begin with physical therapy today. Continue current care. Plan discharged to inpatient rehab Monday.
[2020-08-22 11:33] LABS: Glucose,Whole Blood 386 mg/dL (75-99)
[2020-08-22 11:47] LABS: African American GFR (CKD) 77.4 (60.0-200.0); Albumin 3.8 g/dL (3.80-4.90); Albumin/Globulin Ratio 2.53 (1.60-3.17); Anion Gap 17.7 mmol/L (4.00-12.00); BUN/Creat Ratio 22.5 Ratio (12.00-20.00); Calcium 8.6 mg/dL (8.7-10.3); Carbon Dioxide 15.3 mmol/L (21.6-31.8); Globulin 1.5 g/dL (1.6-3.3); Non-African American GFR(CKD) 66.8 (60.0-200.0); Potassium 4.9 mmol/L (3.5-5.5); Total Bilirubin 0.5 mg/dL (0.2-1.2); Total Protein 5.3 g/dL (6.2-8.2)
[2020-08-22] MEDS: HYDROcodone/APAP 5-325MG 1 EACH TAB PO PRN (12:41)
[2020-08-22] MEDS: MULTIVITAMINS, THERA 1 EACH TAB PO SCH (12:42)
[2020-08-22 16:50] LABS: Glucose,Whole Blood 280 mg/dL (75-99)
[2020-08-22] MEDS: SENNOSIDES-DOCUSATE SODIUM 1 EACH TAB PO SCH (19:40)
[2020-08-22 20:12] LABS: Glucose,Whole Blood 427 mg/dL (75-99)
[2020-08-22] MEDS ORDERED: INSULIN ASPART (NovoLOG) 100 UNIT/ML VIAL SQ ONE (21:03)
[2020-08-23] MEDS: HYDROcodone/APAP 5-325MG 1 EACH TAB PO PRN ×4 (01:37→17:14)
[2020-08-23] MEDS: HEPARIN SODIUM,PORCINE 5,000 UNIT/ML 1 ML VIAL SQ SCH ×3 (06:18→20:36)
[2020-08-23 06:47] LABS: Glucose,Whole Blood 283 mg/dL (75-99)
[2020-08-23] MEDS: ASPIRIN 81 MG PO SCH ×2 (07:34→20:36)
[2020-08-23] MEDS: lisinopriL 10 MG TAB PO SCH (07:34)
[2020-08-23] MEDS: INSULIN ASPART (NovoLOG) 100 UNIT/ML VIAL SQ SCH ×4 (07:34→21:32)
--- NOTE | 2020-08-23 08:29 | P.PN ---
Subjective Progress Note Date: 08/23/20 Patient feels okay today in no distress no chest pain no shortness of breath tolerating diet Patient feels okay today no chest pain no shortness of breath Constitutional: No acute distress, conversant, pleasant Eyes: Anicteric sclerae, moist conjunctiva, no lid-lag PERRLA ENMT: NC/AT Oropharynx clear, no erythema, exudates Neck: Supple, FROM, no masses, or JVD No carotid bruits No thyromegaly Lungs: Clear to auscultation Clear to percussion Normal respiratory effort, no accessory muscle use Cardiovascular: Heart regular in rate and rhythm, No murmurs, gallops, or rubs No peripheral edema Abdominal: Soft Nontender, no guarding, rebound or rigidity Abdomen moving with respiration Normoactive bowel sounds No hepatomegaly, No splenomegaly No palpable mass No abdominal wall hernia noted Skin: Normal temperature, tone, texture, turgor No induration No subcutaneous nodules No rash, lesions No ulcers Extremities: No digital cyanosis No clubbing Pedal pulses intact and symmetrical Radial pulses intact and symmetrical Normal gait and station No calf tenderness Psychiatric:Alert and oriented to person, place and time Appropriate affect Intact judgement Neuro: acute impacted subcapital fracture right femur pain control DVT PPX with heparin sc tid Status post surgical correction overall stable simple cystitis rocephine 1gm IVPB daily follow up cultures Diabetes mellitus check A1C hold oral hypoglycemic agents, resume upon discharge insulin sliding scale Hypertension , urgency , most likely secondary to pain improving with pain control resume home meds enalapril monitor vital signs PT eval post surgery Overall medically stable continue management as per primary team discharge as per primary team Objective - Vital Signs Vital signs: Vital Signs Temp 98.7 F 08/23/20 07:25 Pulse 73 08/23/20 07:25 Resp 17 08/23/20 07:25 BP 140/85 08/23/20 07:25 Pulse Ox 90 L 08/23/20 07:25 Intake & Output 08/22/20 08/23/20 08/23/20 18:59 06:59 18:59 Other: Voiding Method Toilet Toilet # Voids 4 3 1 - Labs CBC & Chem 7: 08/22/20 06:13 08/22/20 06:13 Labs: Abnormal Lab Results - Last 24 Hours (Table) 08/22/20 08/22/20 08/22/20 Range/Units 06:13 11:30 16:43 Carbon Dioxide 15.3 L (21.6-31.8) mmol/L Anion Gap 17.70 H (4.00-12.00) mmol/L BUN/Creatinine Ratio 22.50 H (12.00-20.00) Ratio Glucose 318 H (70-110) mg/dL POC Glucose (mg/dL) 386 H 280 H (75-99) mg/dL Calcium 8.6 L (8.7-10.3) mg/dL Total Protein 5.3 L (6.2-8.2) g/dL Globulin 1.5 L (1.6-3.3) g/dL 08/22/20 08/23/20 Range/Units 20:09 06:45 Carbon Dioxide (21.6-31.8) mmol/L Anion Gap (4.00-12.00) mmol/L BUN/Creatinine Ratio (12.00-20.00) Ratio Glucose (70-110) mg/dL POC Glucose (mg/dL) 427 H 283 H (75-99) mg/dL Calcium (8.7-10.3) mg/dL Total Protein (6.2-8.2) g/dL Globulin (1.6-3.3) g/dL
[2020-08-23 08:46] LABS: Basophils % (A) 0 %; Eosinophils % (A) 0 %; HCT 36.1 % (34.0-46.0); HGB 11.9 gm/dL (11.4-16.0); Hypochromasia Slight; Lymphocytes # (A) 0.5 k/uL (1.0-4.8); Lymphocytes % (A) 5 %; MCH 32.1 pg (25.0-35.0); MCV 97.3 fL (80.0-100.0); Mean Platelet Volume 8.3; Monocytes # (A) 0.5 k/uL (0-1.0); Monocytes % (A) 5 %; Neutrophils # (A) 8.9 k/uL (1.3-7.7); Neutrophils % (A) 89 %; Platelet Count 198 k/uL (150-450); RBC 3.71 m/uL (3.80-5.40); RDW 13.9 % (11.5-15.5)
[2020-08-23] MEDS: LACTATED RINGERS 1,000 ML IV SCH ×2 (10:17→18:23)
--- NOTE | 2020-08-23 11:08 | P.PN ---
Subjective Progress Note Date: 08/23/20 This is an 85-year-old female who is status post right hip hemiarthroplasty. This is postoperative day #2. Patient states that her pain is well controlled and she has been up and walking with physical therapy. Patient denies any new complaints today. Objective - Vital Signs Vital signs: Vital Signs Temp 98.7 F 08/23/20 07:25 Pulse 73 08/23/20 07:25 Resp 17 08/23/20 07:25 BP 140/85 08/23/20 07:25 Pulse Ox 90 L 08/23/20 07:25 Intake & Output 08/22/20 08/23/20 08/23/20 18:59 06:59 18:59 Other: Voiding Method Toilet Toilet # Voids 4 3 1 - Exam Vital signs are stable. Patient is in no acute distress and is alert and oriented 3. Calf is soft and nontender to palpation. Patient has full foot and ankle motion without pain or difficulty. Neurovascular status and circulatory status are intact. - Labs CBC & Chem 7: 08/23/20 08:35 08/22/20 06:13 Labs: Abnormal Lab Results - Last 24 Hours (Table) 08/22/20 08/22/20 08/22/20 Range/Units 06:13 11:30 16:43 RBC (3.80-5.40) m/uL Neutrophils # (1.3-7.7) k/uL Lymphocytes # (1.0-4.8) k/uL Carbon Dioxide 15.3 L (21.6-31.8) mmol/L Anion Gap 17.70 H (4.00-12.00) mmol/L BUN/Creatinine Ratio 22.50 H (12.00-20.00) Ratio Glucose 318 H (70-110) mg/dL POC Glucose (mg/dL) 386 H 280 H (75-99) mg/dL Calcium 8.6 L (8.7-10.3) mg/dL Total Protein 5.3 L (6.2-8.2) g/dL Globulin 1.5 L (1.6-3.3) g/dL 08/22/20 08/23/20 08/23/20 Range/Units 20:09 06:45 08:35 RBC 3.71 L (3.80-5.40) m/uL Neutrophils # 8.9 H (1.3-7.7) k/uL Lymphocytes # 0.5 L (1.0-4.8) k/uL Carbon Dioxide (21.6-31.8) mmol/L Anion Gap (4.00-12.00) mmol/L BUN/Creatinine Ratio (12.00-20.00) Ratio Glucose (70-110) mg/dL POC Glucose (mg/dL) 427 H 283 H (75-99) mg/dL Calcium (8.7-10.3) mg/dL Total Protein (6.2-8.2) g/dL Globulin (1.6-3.3) g/dL Assessment and Plan (1) S/P hip hemiarthroplasty Current Visit: Yes Status: Acute Code(s): Z96.649 - PRESENCE OF UNSPECIFIED ARTIFICIAL HIP JOINT SNOMED Code(s): 078372139 (2) Fall Current Visit: Yes Status: Acute Code(s): W19.XXXA - UNSPECIFIED FALL, INITIAL ENCOUNTER SNOMED Code(s): 2096428 (3) Fracture of femoral neck, right Current Visit: Yes Status: Acute Code(s): S72.001A - FRACTURE OF UNSP PART OF NECK OF RIGHT FEMUR, INIT SNOMED Code(s): 8369904 Plan: Continue routine postop care and pain control. Continue hip dislocation precautions. Continue anticoagulation with aspirin. Weightbearing as tolerated with a walker. Appreciate input from medicine. Anticipate discharge to the F tomorrow.
[2020-08-23 11:34] LABS: Glucose,Whole Blood 471 mg/dL (75-99)
[2020-08-23] MEDS: MULTIVITAMINS, THERA 1 EACH TAB PO SCH (11:53)
[2020-08-23 16:36] LABS: Glucose,Whole Blood 384 mg/dL (75-99)
[2020-08-23 20:08] LABS: Glucose,Whole Blood 584 mg/dL (75-99)
[2020-08-23 20:08] LABS: Glucose,Whole Blood 516 mg/dL (75-99)
[2020-08-23] MEDS: SENNOSIDES-DOCUSATE SODIUM 1 EACH TAB PO SCH (20:35)
[2020-08-23] MEDS ORDERED: INSULIN DETEMIR (LEVEMIR) 100 UNIT/ML SYR SQ SCH (21:00)
--- NOTE | 2020-08-23 21:01 | P.PN ---
Progress Note - Text Progress Note Date: 08/23/20 poorly controlled blood sugar for two days now notified by RN about elevated blood sugar after dinner patient requiring about 24 units daily of insulin per sliding scale plan insulin aspart 4 units sc AC-TID levemir 12 units sc QHS increase her sliding scale to scale B , she would require 12 units sc at this time recheck blood sugar in 2-3 hours
[2020-08-24 00:41] LABS: Glucose,Whole Blood 315 mg/dL (75-99)
[2020-08-24] MEDS: HYDROcodone/APAP 5-325MG 1 EACH TAB PO PRN ×2 (00:49→08:12)
[2020-08-24] MEDS: LACTATED RINGERS 1,000 ML IV SCH ×2 (01:03→12:05)
[2020-08-24 04:58] LABS: Glucose,Whole Blood 79 mg/dL (75-99)
[2020-08-24] MEDS: HEPARIN SODIUM,PORCINE 5,000 UNIT/ML 1 ML VIAL SQ SCH ×2 (05:18→12:15)
[2020-08-24 06:41] LABS: Glucose,Whole Blood 102 mg/dL (75-99)
[2020-08-24] MEDS: INSULIN ASPART (NovoLOG) 100 UNIT/ML VIAL SQ SCH ×4 (07:05→12:15)
[2020-08-24] MEDS: lisinopriL 10 MG TAB PO SCH (08:09)
[2020-08-24] MEDS: MULTIVITAMINS, THERA 1 EACH TAB PO SCH (08:09)
[2020-08-24] MEDS: ASPIRIN 81 MG PO SCH (08:09)
--- NOTE | 2020-08-24 08:30 | P.DS ---
Providers Date of admission: 08/20/20 20:43 Expected date of discharge: 08/24/20 Attending physician: Yann Scott Consults: 08/20/20 20:15 Consult Physician Urgent Consulting Provider: Shawn Betancourt Consult Reason/Comments: Medical clearance for surgery Do you want consulting provider notified?: Yes 08/20/20 20:23 Consult Physician Urgent Consulting Provider: Cyndi Crowe Consult Reason/Comments: medical clearance for hip fracture surgery Do you want consulting provider notified?: Yes 08/21/20 09:53 Consult Physician Routine Consulting Provider: Zakia Garcia Consult Reason/Comments: slow cap refill lower extremety Do you want consulting provider notified?: Yes Primary care physician: Stated None - Discharge Diagnosis(es) (1) Fracture of femoral neck, right Current Visit: Yes Status: Acute (2) Fall Current Visit: Yes Status: Acute (3) Diabetes Current Visit: No Status: Acute Hospital Course: This is an 85-year-old female who presented on 08/20/2020 after falling and sustaining injury to the right hip. On exam and x-ray in the emergency department she was found to have a hip fracture. The pt is admitted to our service for surgical intervention and care. The patient is taken to surgery for hemiarthroplasty of the right hip. The procedure is performed without complication or sequelae. The patient is doing well postoperatively. Vital signs are stable on postop day #3. There are no new complaints or concerns. She did have elevated blood sugar on postoperative day #2. Glucose is 79 this morning. The patient is discharged to inpatient rehab pending medical clearance today. Please refer to the [facility] for accurate list of medications. Plan - Discharge Summary Discharge Rx Participant: No New Discharge Prescriptions: New Aspirin [Adult Low Dose Aspirin EC] 81 mg PO BID #60 tablet. HYDROcodone/APAP 5-325MG [Dittmer 5-325] 1 tab PO Q6HR PRN #28 tab PRN Reason: Pain Sennosides-Docusate Sodium [Senokot-S] 1 tab PO BID #60 tablet No Action Enalapril [Vasotec] 10 mg PO DAILY metFORMIN HCL ER [Glucophage Xr] 500 mg PO BID glipiZIDE [Glucotrol XL] 10 mg PO DAILY Pioglitazone HCl 45 mg PO DAILY Discharge Medication List Enalapril [Vasotec] 10 mg PO DAILY 04/27/15 [History] Pioglitazone HCl 45 mg PO DAILY 08/20/20 [History] glipiZIDE [Glucotrol XL] 10 mg PO DAILY 08/20/20 [History] metFORMIN HCL ER [Glucophage Xr] 500 mg PO BID 08/20/20 [History] Aspirin [Adult Low Dose Aspirin EC] 81 mg PO BID #60 tablet. 08/24/20 [Rx] HYDROcodone/APAP 5-325MG [Dittmer 5-325] 1 tab PO Q6HR PRN #28 tab 08/24/20 [Rx] Sennosides-Docusate Sodium [Senokot-S] 1 tab PO BID #60 tablet 08/24/20 [Rx] Follow up Appointment(s)/Referral(s): Clemencia Balbuena, PAC [PHYSICIAN CHANNEL SUPERVISOR] - 3 Weeks None,Stated [Primary Care Provider] - 1-2 days Activity/Diet/Wound Care/Special Instructions: May bear weight as tolerated with walker. Leave Optifoam dressing intact 7-10 days. May shower. Discharge Disposition: TRANSFER TO SNF/ECF
[2020-08-24 09:26] LABS: African American GFR (CKD) 101.6 (60.0-200.0); Albumin 3.7 g/dL (3.80-4.90); Albumin/Globulin Ratio 2.47 (1.60-3.17); Anion Gap 10.6 mmol/L (4.00-12.00); Calcium 8.8 mg/dL (8.7-10.3); Carbon Dioxide 27.4 mmol/L (21.6-31.8); Globulin 1.5 g/dL (1.6-3.3); Non-African American GFR(CKD) 87.6 (60.0-200.0); Potassium 3.6 mmol/L (3.5-5.5); Total Bilirubin 0.6 mg/dL (0.3-1.2); Total Protein 5.2 g/dL (6.2-8.2)
[2020-08-24 11:37] LABS: Glucose,Whole Blood 423 mg/dL (75-99)
[2020-08-24 12:05] LABS: Glucose,Whole Blood 332 mg/dL (75-99)
--- NOTE | 2020-08-24 12:20 | P.PN ---
Subjective Progress Note Date: 08/24/20 No new complaints today. Sugars are better controlled. Objective - Vital Signs Vital signs: Vital Signs Temp 99.0 F 08/24/20 07:44 Pulse 86 08/24/20 07:44 Resp 18 08/24/20 08:15 BP 127/74 08/24/20 07:44 Pulse Ox 95 08/24/20 07:44 Intake & Output 08/23/20 08/24/20 08/24/20 18:59 06:59 18:59 Intake Total 400 Balance 400 Intake: Oral 400 Other: Voiding Method Toilet Toilet Toilet # Voids 1 2 # Bowel Movements 1 - Exam Gen: awake, alert HEENT: normocephalic, atraumatic, good hearing acuity, moist mucous membranes Resp: good air exchange, breathing comfortably with no accessory muscle use CVS: good distal perfusion x 4, GI: soft, NTTP, ND : no SPT, no CVAT, saunders catheter not present MSK: no pitting edema, no clubbing Neuro: non-focal, moving all extremities Psych: cooperative, euthymic mood - Labs CBC & Chem 7: 08/23/20 08:35 08/24/20 06:06 Labs: Abnormal Lab Results - Last 24 Hours (Table) 08/23/20 08/23/20 08/23/20 Range/Units 16:34 20:02 20:04 Sodium (135-145) mmol/L Chloride (96-109) mmol/L BUN (9.0-27.0) mg/dL Creatinine (0.6-1.5) mg/dL BUN/Creatinine Ratio (12.00-20.00) Ratio POC Glucose (mg/dL) 384 H 516 H 584 H (75-99) mg/dL Total Protein (6.2-8.2) g/dL Albumin (3.80-4.90) g/dL Globulin (1.6-3.3) g/dL 08/24/20 08/24/20 08/24/20 Range/Units 00:35 06:06 06:40 Sodium 148 H (135-145) mmol/L Chloride 110 H (96-109) mmol/L BUN 30.0 H (9.0-27.0) mg/dL Creatinine 0.5 L (0.6-1.5) mg/dL BUN/Creatinine Ratio 60.00 H (12.00-20.00) Ratio POC Glucose (mg/dL) 315 H 102 H (75-99) mg/dL Total Protein 5.2 L (6.2-8.2) g/dL Albumin 3.70 L (3.80-4.90) g/dL Globulin 1.5 L (1.6-3.3) g/dL 08/24/20 08/24/20 Range/Units 11:36 12:04 Sodium (135-145) mmol/L Chloride (96-109) mmol/L BUN (9.0-27.0) mg/dL Creatinine (0.6-1.5) mg/dL BUN/Creatinine Ratio (12.00-20.00) Ratio POC Glucose (mg/dL) 423 H 332 H (75-99) mg/dL Total Protein (6.2-8.2) g/dL Albumin (3.80-4.90) g/dL Globulin (1.6-3.3) g/dL Assessment and Plan Assessment: acute impacted subcapital fracture right femur pain control DVT PPX with heparin sc tid Status post surgical correction overall stable simple cystitis rocephine 1gm IVPB daily follow up cultures Diabetes mellitus check A1C hold oral hypoglycemic agents, resume upon discharge insulin sliding scale Hypertension , urgency , most likely secondary to pain improving with pain control resume home meds enalapril monitor vital signs PT eval post surgery Overall medically stable continue management as per primary team discharge as per primary team
--- NOTE | 2020-08-24 13:16 | P.PN ---
Subjective Progress Note Date: 08/24/20 Was seen and examined sitting up in bed eating her lunch. She states she is doing fine. She had a right hip cemented unipolar humeral arthroplasty at 120- 21. Plan is for discharge to rehab today. Patient denies any acute changes through the night. States that pain is well controlled. She also states that she has chronic discoloration to bilateral feet. Objective - Vital Signs Vital signs: Vital Signs Temp 99.0 F 08/24/20 07:44 Pulse 86 08/24/20 07:44 Resp 18 08/24/20 08:15 BP 127/74 08/24/20 07:44 Pulse Ox 95 08/24/20 07:44 Intake & Output 08/23/20 08/24/20 08/24/20 18:59 06:59 18:59 Intake Total 400 Balance 400 Intake: Oral 400 Other: Voiding Method Toilet Toilet Toilet # Voids 1 2 # Bowel Movements 1 - Exam General appearance: The patient is alert, oriented, appears in no acute distress. HET: Head is normocephalic and atraumatic. Neck: Supple without lymphadenopathy. Trachea midline. Extremities: Bilateral feet with purple discoloration. Warm to touch. Palpable I lateral PT and DP pulses. Good capillary refill. No rash, ulceration, clubbing, or edema. Neurological: No focal deficits. sensori-motor intact - Labs CBC & Chem 7: 08/23/20 08:35 08/24/20 06:06 Labs: Abnormal Lab Results - Last 24 Hours (Table) 08/23/20 08/23/20 08/23/20 Range/Units 11:32 16:34 20:02 Sodium (135-145) mmol/L Chloride (96-109) mmol/L BUN (9.0-27.0) mg/dL Creatinine (0.6-1.5) mg/dL BUN/Creatinine Ratio (12.00-20.00) Ratio POC Glucose (mg/dL) 471 H 384 H 516 H (75-99) mg/dL Total Protein (6.2-8.2) g/dL Albumin (3.80-4.90) g/dL Globulin (1.6-3.3) g/dL 08/23/20 08/24/20 08/24/20 Range/Units 20:04 00:35 06:06 Sodium 148 H (135-145) mmol/L Chloride 110 H (96-109) mmol/L BUN 30.0 H (9.0-27.0) mg/dL Creatinine 0.5 L (0.6-1.5) mg/dL BUN/Creatinine Ratio 60.00 H (12.00-20.00) Ratio POC Glucose (mg/dL) 584 H 315 H (75-99) mg/dL Total Protein 5.2 L (6.2-8.2) g/dL Albumin 3.70 L (3.80-4.90) g/dL Globulin 1.5 L (1.6-3.3) g/dL 08/24/20 Range/Units 06:40 Sodium (135-145) mmol/L Chloride (96-109) mmol/L BUN (9.0-27.0) mg/dL Creatinine (0.6-1.5) mg/dL BUN/Creatinine Ratio (12.00-20.00) Ratio POC Glucose (mg/dL) 102 H (75-99) mg/dL Total Protein (6.2-8.2) g/dL Albumin (3.80-4.90) g/dL Globulin (1.6-3.3) g/dL Assessment and Plan Assessment: Color change to right lower extremity Femoral neck fracture, right Plan: 1. Continue supportive care 2. Advance physical activity per orthopedics 3. There are no further vascular surgical interventions or testing requited at this time, agree with discharge to rehab. The above dictated assessment and findings were discussed with Dr. Das. The impression and plan of care have been directed as dictated.
[2020-08-24 14:31] VITALS: BP 130/72; PULSE 98; RESP 17; TEMP 98.5
--- NOTE | 2020-08-26 11:15 | P.ARTDOP ---
Arterial Doppler LOWER EXTREMITY ARTERIAL DOPPLER: DATE OF SERVICE: 08/21/2020 Reason for study: Leg discoloration. Doppler waveforms: Multiphasic bilaterally throughout. Toe waveforms are very blunted. Pulse volume recording: []. Pressure gradients: No significant gradients except at the foot level. Ankle-brachial indices: Greater than 1 bilaterally. Toe brachial indices: 0.53 on the right, 0.63 on the left Impression: Normal study proximally. Probably some calcific wall disease causing elevation of pressure at the ankle level. Toe waveforms are blunted, probably related to vasospastic phenomenon.
== END 2020-08-24 15:37 | DRG 522 ==
LOC: EC 17:25 → 4SSUR 20:43
PROVIDERS: ADMIT Orthopaedic Surgery; ATTEND Orthopaedic Surgery
PROC: 0SRR0J9 Replacement of Right Hip Joint, Femoral Surface with Synthetic Substitute, Cemented, Open Approach (ICD-10-PCS; principal; 2020-08-21 15:50)
DX: S72.011A Unspecified intracapsular fracture of right femur, initial encounter for closed fracture (principal); E87.1 Hypo-osmolality and hyponatremia; N30.90 Cystitis, unspecified without hematuria; E11.9 Type 2 diabetes mellitus without complications; M25.00 Hemarthrosis, unspecified joint; I10 Essential (primary) hypertension; W01.0XXA Fall on same level from slipping, tripping and stumbling without subsequent striking against object, initial encounter; R29.6 Repeated falls; Z91.81 History of falling; Y92.009 Unspecified place in unspecified non-institutional (private) residence as the place of occurrence of the external cause; Z79.899 Other long term (current) drug therapy; Z79.82 Long term (current) use of aspirin; Z79.84 Long term (current) use of oral hypoglycemic drugs; Z79.01 Long term (current) use of anticoagulants; Z85.038 Personal history of other malignant neoplasm of large intestine; Z90.49 Acquired absence of other specified parts of digestive tract; Z98.890 Other specified postprocedural states; Z80.9 Family history of malignant neoplasm, unspecified
CPT/HCPCS: 36415; 71045; 73501; 73502; 80048; 80053; 81001; 83036; 85025; 85610; 85730; 88305; 88311; 93005; 93922; 93923; 96361; 96372; 96374; 96376; 99285

== ENCOUNTER 2021-10-24 20:25 | Emergency (ER) | payer MEDICARE, BC ==
[2021-10-24 20:42] VITALS: RESP 18
--- NOTE | 2021-10-24 22:05 | CT ---
EXAMINATION TYPE: CT brain johana archuleta con DATE OF EXAM: 10/24/2021 COMPARISON: None HISTORY: fall CT DLP: 1213.3 mGycm Automated exposure control for dose reduction was used. Images of the brain and cervical spine obtained without contrast. There is cerebral cortical atrophy. There is no mass effect or midline shift. There is no sign of int racranial hemorrhage. There is mild hypodensity in the periventricular white matter. The calvarium is intact. Cervical vertebra have fairly normal alignment. No compression fracture. No significant disc space na rrowing. Facet joints are intact. There is no subluxation. IMPRESSION: Negative CT scan cervical spine. No fracture. Minor degenerative disc changes. Cerebral atrophy and chronic small vessel ischemia. No acute intracranial abnormality.
[2021-10-24 22:06] LABS: ALT 18 U/L (4-34); AST 26 U/L (14-36); African American GFR (CKD) >90 (>60 ml/min/1.73 sqM); Albumin 3.9 g/dL (3.5-5.0); Alkaline Phosphatase 91 U/L (38-126); Anion Gap 8 mmol/L; Anisocytosis Slight; Basophils % (A) 0 %; Blood Urea Nitrogen 31 mg/dL (7-17); Calcium 9.6 mg/dL (8.4-10.2); Carbon Dioxide 28 mmol/L (22-30); Chloride 99 mmol/L (98-107); Eosinophils # (A) 0.1 k/uL (0-0.7); Eosinophils % (A) 1 %; Glucose 173 mg/dL (74-99); HGB 11.7 gm/dL (11.4-16.0); Hypochromasia Slight; Lymphocytes # (A) 0.8 k/uL (1.0-4.8); Lymphocytes % (A) 10 %; MCH 26.4 pg (25.0-35.0); MCHC 30.7 g/dL (31.0-37.0); MCV 85.9 fL (80.0-100.0); Mean Platelet Volume 6.8; Monocytes # (A) 0.4 k/uL (0-1.0); Monocytes % (A) 5 %; Neutrophils # (A) 6.5 k/uL (1.3-7.7); Neutrophils % (A) 82 %; Non-African American GFR(CKD) 82 (>60 ml/min/1.73 sqM); Platelet Count 373 k/uL (150-450); RBC 4.42 m/uL (3.80-5.40); RDW 16.5 % (11.5-15.5); Sodium 135 mmol/L (137-145); Total Bilirubin 0.5 mg/dL (0.2-1.3); Total Protein 6.7 g/dL (6.3-8.2); WBC 7.9 k/uL (3.8-10.6)
--- NOTE | 2021-10-24 22:15 | XR ---
EXAMINATION TYPE: XR Hip LT and AP Pelvis DATE OF EXAM: 10/24/2021 COMPARISON: 04/28/2015 HISTORY: Pain TECHNIQUE: 4 views FINDINGS: The pelvic ring is intact. There is bilateral hip prosthesis. Components appear in anatomic position. There is osteopenia. No acute fracture seen. IMPRESSION: No acute abnormality of the pelvis and left hip. No adverse change compared to old exam.
[2021-10-24] MEDS ORDERED: traMADol 50 MG TAB PO STA (22:25)
--- NOTE | 2021-10-24 22:30 | ED ---
General Adult HPI - General Chief complaint: Fall Stated complaint: Fall Time Seen by Provider: 10/24/21 20:45 Source: patient, EMS, RN notes reviewed Mode of arrival: EMS Limitations: no limitations - History of Present Illness Initial comments: 86-year-old female presents to the emergency department via EMS for evaluation of injury sustained in fall this evening. Patient is accompanied by her daughter who reports she received a call from the [place] [facility] informing her of the injuries. Daughter states she was told that the patient was found on her right side, however patient complains of discomfort on her left side when asked. Patient arrives with C-Collar in place. She is uncertain about loss of consciousness. Patient does have a history of dementia and is having difficulty recalling the events surrounding the fall. Patient's daughter states patient is at her baseline. Denies fever, chills, dizziness, headache, facial pain, chest pain, difficulty breathing, cough, abdominal pain, nausea, vomiting, diarrhea, dysuria, loss of sensation, or any additional complaints. - Related Data Home Medications Medication Instructions Recorded Confirmed Enalapril [Vasotec] 10 mg PO DAILY 04/27/15 08/05/21 Pioglitazone HCl 45 mg PO DAILY 08/20/20 08/05/21 Ferrous Sulfate [Iron (65 MG 325 mg PO DAILY 08/05/21 08/05/21 Elemental)] Insulin Glargine,Hum.rec.anlog 10 unit SQ HS 08/05/21 08/05/21 [Lantus Solostar Pen] metFORMIN HCL ER [Glucophage XR] 1,000 mg PO BID 08/05/21 08/05/21 Previous Rx's Medication Instructions Recorded Sulfamethox-Tmp 800-160Mg [Bactrim 1 tab PO Q12HR 5 Days #10 tab 08/07/21 DS 800-160 mg] Allergies Allergy/AdvReac Type Severity Reaction Status Date / Time No Known Allergies Allergy Verified 08/05/21 03:28 Review of Systems ROS Statement: Those systems with pertinent positive or pertinent negative responses have been documented in the HPI. ROS Other: All systems not noted in ROS Statement are negative. Past Medical History Past Medical History: Cancer, Dementia, Diabetes Mellitus, Hypertension Additional Past Medical History / Comment(s): Colon ca 1994 History of Any Multi-Drug Resistant Organisms: None Reported Past Surgical History: Bowel Resection Additional Past Surgical History / Comment(s): L/R hip hemiarthroplasties, colonoscopy Past Anesthesia/Blood Transfusion Reactions: No Reported Reaction Past Psychological History: No Psychological Hx Reported Smoking Status: Never smoker Past Alcohol Use History: None Reported Past Drug Use History: None Reported - Past Family History Father Family Medical History: No Reported History Additional Family Medical History / Comment(s): Father was healthy Mother Family Medical History: Cancer Additional Family Medical History / Comment(s): patient unsure of what type of cancer General Exam Limitations: physical limitation (Patient arrives with C-Collar in place. She alert, well-developed, and well-nourished; no acute distress. Initial temperature 97.0, pulse 67, respirations 18, blood pressure 121/69, pulse ox 98% on room air.) General appearance: alert, in no apparent distress Head exam: Present: atraumatic, normocephalic, normal inspection Eye exam: Present: normal appearance, PERRL, EOMI. Absent: scleral icterus, conjunctival injection, nystagmus, periorbital swelling, periorbital tenderness ENT exam: Present: normal exam, normal oropharynx, mucous membranes moist Neck exam: Present: other (Upon exam initially, patient arrives with C-Collar which will be maintained due to mechanism of injury.) Respiratory exam: Present: normal lung sounds bilaterally. Absent: respiratory distress, wheezes, rales, rhonchi, stridor, chest wall tenderness Cardiovascular Exam: Present: regular rate, normal rhythm, normal heart sounds. Absent: systolic murmur, diastolic murmur, rubs, gallop, clicks GI/Abdominal exam: Present: soft, normal bowel sounds. Absent: distended, tenderness, guarding, rebound, rigid Left General: Present: normal inspection (no obvious deformity, abrasion, laceration, or contusion noted. no pain upon palpation. ROM intact. Hand licensed insurance agent strong, equal bilaterally) Neuro motor exam: Present: wrist extension intact, thumb opposition intact, fingers 2-5 abduction intact Vascular: Present: radial pulse, brachial pulse, ulnar pulse. Absent: vascular compromise, Pallo, normal capillary refill Right General: Present: normal inspection (no obvious deformity, abrasion, laceration, or contusion noted. no pain upon palpation. ROM intact. Hand licensed insurance agent strong, equal bilaterally) Neuro motor exam: Present: wrist extension intact, thumb opposition intact, fingers 2-5 abduction intact Vascular: Present: normal capillary refill, radial pulse, brachial pulse, ulnar pulse. Absent: vascular compromise, Pallo Left Hip exam: Present: normal inspection, full ROM, tenderness (mild tenderness upon palpation of the left iliac crest and left side of the pelvic), pelvic stability. Absent: swelling, abrasion, laceration, ecchymosis, deformity, crepitus, dislocation, external rotation, internal rotation, shortening Upper Leg exam: Present: normal inspection, full ROM. Absent: tenderness, swelling Knee exam: Present: normal inspection. Absent: full ROM, tenderness, swelling Lower Leg exam: Present: normal inspection, full ROM. Absent: tenderness, swelling Ankle exam: Present: normal inspection, full ROM. Absent: tenderness, swelling Foot/Toe exam: Present: normal inspection, full ROM. Absent: tenderness, swelling Neurovascular tendon exam: Present: no vascular compromise. Absent: pulse deficit, sensory deficit Right Hip exam: Present: normal inspection, full ROM, pelvic stability. Absent: tenderness, swelling, abrasion, ecchymosis, deformity, crepitus, dislocation, external rotation, internal rotation, shortening Upper Leg exam: Present: normal inspection, full ROM. Absent: tenderness, swelling Knee exam: Present: normal inspection, full ROM. Absent: tenderness, swelling Lower Leg exam: Present: normal inspection, full ROM. Absent: tenderness, swelling Ankle exam: Present: normal inspection, full ROM. Absent: tenderness, swelling Foot/Toe exam: Present: normal inspection, full ROM. Absent: tenderness, swelling Neurovascular tendon exam: Present: no vascular compromise. Absent: pulse deficit, abnormal cap refill, sensory deficit Back exam: Present: normal inspection. Absent: paraspinal tenderness, vertebral tenderness Neurological exam: Present: alert, other (oriented to person, not time or place) Expanded Patient oriented to: Present: person. Absent: place, time Cranial nerves: EOM's Intact: Normal, Tongue Deviation: Normal Cerebellar function: Finger to Nose: Normal Motor strength exam: RUE: 4, LUE: 4, RLE: 4, LLE: 4 Eye Response: (4) open spontaneously Motor Response: (6) obeys commands Verbal Response: (4) confused conversation [place] Total: 14 Psychiatric exam: Present: normal affect, normal mood Skin exam: Present: warm, dry, intact, normal color Course Vital Signs 10/24/21 10/24/21 10/24/21 20:37 20:42 23:05 Temperature 97.0 F L 98.7 F Pulse Rate 67 61 63 Respiratory 18 18 18 Rate Blood Pressure 121/69 140/66 158/92 O2 Sat by Pulse 98 97 97 Oximetry - Reevaluation(s) Reevaluation #1: 10/24/21 22:20 Patient and daughter updated on findings. Patient verbalizes readiness for discharge. Does complain of mild left hip discomfort and is agreeable to a dose of Ultram (which she is prescribed to take according to her med rec from [facility]) prior to departure. Medical Decision Making - Medical Decision Making 86-year-old female with a past medical history of dementia, diabetes, hypertension, and bilateral hip replacement presents to the emergency department for evaluation of injuries sustained in a fall. Upon exam, patient is awake and alert with baseline level of orientation per daughter present at the bedside. C-collar is in place due to mechanism of injury. Spinal precautions were maintained. Physical exam findings do reveal mild left hip and pelvis pain upon palpation. In reviewing the patient's chart, nursing documentation express concern for right hip and shoulder pain, though patient is moving the upper extremity freely and has no pain with palpation of the right hip and low back. Patient is able to follow commands appropriately. CT of the brain and C-spine were negative for acute findings therefore collar was removed. X-rays of the left hip and pelvis were negative. Laboratory studies were unremarkable. Lien ent was given an Ultram prior to departure for moderate discomfort she associated with laying in the bed for an extended period of time. Patient will be discharged back to [facility] to continue home medications as prescribed and to follow-up with in-house PCP for a recheck. Return parameters were reviewed with patient's daughter. Discharge instructions, including return parameters, were detailed in packet. Attending: Km. - Lab Data Result diagrams: 10/24/21 21:45 10/24/21 21:45 Lab Results 10/24/21 10/24/21 Range/Units 21:45 21:45 WBC 7.9 (3.8-10.6) k/uL RBC 4.42 (3.80-5.40) m/uL Hgb 11.7 (11.4-16.0) gm/dL Hct 38.0 (34.0-46.0) % MCV 85.9 (80.0-100.0) fL MCH 26.4 (25.0-35.0) pg MCHC 30.7 L (31.0-37.0) g/dL RDW 16.5 H (11.5-15.5) % Plt Count 373 (150-450) k/uL MPV 6.8 Neutrophils % 82 % Lymphocytes % 10 % Monocytes % 5 % Eosinophils % 1 % Basophils % 0 % Neutrophils # 6.5 (1.3-7.7) k/uL Lymphocytes # 0.8 L (1.0-4.8) k/uL Monocytes # 0.4 (0-1.0) k/uL Eosinophils # 0.1 (0-0.7) k/uL Basophils # 0.0 (0-0.2) k/uL Hypochromasia Slight Anisocytosis Slight Sodium 135 L (137-145) mmol/L Potassium 5.0 (3.5-5.1) mmol/L Chloride 99 (98-107) mmol/L Carbon Dioxide 28 (22-30) mmol/L Anion Gap 8 mmol/L BUN 31 H (7-17) mg/dL Creatinine 0.61 (0.52-1.04) mg/dL Est GFR (CKD-EPI)AfAm >90 (>60 ml/min/1.73 sqM) Est GFR (CKD-EPI)NonAf 82 (>60 ml/min/1.73 sqM) Glucose 173 H (74-99) mg/dL Calcium 9.6 (8.4-10.2) mg/dL Total Bilirubin 0.5 (0.2-1.3) mg/dL AST 26 (14-36) U/L ALT 18 (4-34) U/L Alkaline Phosphatase 91 (38-126) U/L Total Protein 6.7 (6.3-8.2) g/dL Albumin 3.9 (3.5-5.0) g/dL - Radiology Data Radiology results: report reviewed, image reviewed CT brain and C-spine without contrast was obtained. Report was reviewed in its entirety. Impression per Dr. Arambula his negative computed tomography scan and cervical spine. No fracture. Minor degenerative disc changes. Cerebral atrophy and chronic small vessel ischemia. No acute intracranial abnormality. X-ray of the left hip and AP pelvis was obtained. Report was reviewed in its entirety. Impression per Dr. Arambula is no acute abnormality of the pelvis and left hip. No adverse change compared to old exam. Disposition Clinical Impression: Hip pain, left, Fall Disposition: OTHER INSTITUTION NOT DEFINED Condition: Stable Instructions (If sedation given, give patient instructions): Fall Prevention for Older Adults (ED), Hip Pain (ED) Additional Instructions: Continue taking home medications as prescribed. Utilize appropriate follow-up precautions. Follow-up with PCP for a recheck as needed. Return to the emergency department with any new, worsening, or concerning symptoms. Is patient prescribed a controlled substance at d/c from ED?: No Referrals: Ramakrishna Park DO [Primary Care Provider] - 1-2 days Time of Disposition: 22:30 - Out of Hospital Transfer - Req. Specs Out of Hospital Transfer - Requested Specifics: Other Non-Acute (return to ECF)
[2021-10-24 23:05] VITALS: TEMP 98.7
[2021-10-24 23:07] VITALS: BP 158/92; PULSE 63
== END 2021-10-24 23:30 | disposition other institution (70) ==
LOC: EC 20:25
DX: M25.552 Pain in left hip (principal); F03.90 Unspecified dementia, unspecified severity, without behavioral disturbance, psychotic disturbance, mood disturbance, and anxiety; E11.9 Type 2 diabetes mellitus without complications; I10 Essential (primary) hypertension; Z79.4 Long term (current) use of insulin; Z79.84 Long term (current) use of oral hypoglycemic drugs; Z85.038 Personal history of other malignant neoplasm of large intestine; W18.30XA Fall on same level, unspecified, initial encounter
CPT/HCPCS: 36415; 70450; 72125; 73502; 80053; 85025; 99285